=== PATIENT | female | born 1995 | race African-American/Black ===

== ENCOUNTER 2019-01-10 00:31 | Emergency (ER) | payer MEDICAID ==
[~2019-01-10] VITALS: Ht 167.6 cm; Wt 50.0 kg
[2019-01-10] MEDS ORDERED: SODIUM CHLORIDE 0.9% 1,000 ML IV ONE (04:40)
[2019-01-10] MEDS ORDERED: LORAZEPAM 2MG/ML CPJ IV ONE (04:45)
[2019-01-10 05:26] LABS: BASOPHILS % 0.6 % (0.0-2.0); EOSINOPHILS % 0.4 % (0.0-5.0); HEMATOCRIT. 45.3 % (36.0-48.0); HEMOGLOBIN. 14.8 g/dL (12.0-16.0); LYMPHOCYTES % 21.1 % (20.0-50.0); MEAN CORPUSCULAR HEMOGLOBIN 27.8 pg (28.0-32.0); MONOCYTES % 6.1 % (2.0-8.0); NEUTROPHILS % 71.8 % (40.0-76.0); PLATELET 174 x1000/uL (130-400); RED BLOOD CELL COUNT 5.33 mill/uL (4.2-5.4)
[2019-01-10 05:28] LABS: CHLORIDE 108 mEq/L (98-107)
[2019-01-10 05:44] LABS: ETHANOL BLOOD 326 mg/dL
[2019-01-10] MEDS ORDERED: POTASSIUM BICARB/CIT ACID 25 MEQ TABLET.EFF PO ONE (05:45)
[2019-01-10 06:07] LABS: *AMPHETAMINES SCREEN URINE NEGATIVE (NEGATIVE); *BARBITURATES SCREEN URINE NEGATIVE (NEGATIVE); *BENZODIAZEPINES SCREEN URINE NEGATIVE (NEGATIVE); *COCAINE SCREEN URINE NEGATIVE (NEGATIVE)
[2019-01-10 06:08] LABS: METHADONE URINE SCREEN NEGATIVE (NEGATIVE); OPIATES URINE SCREEN NEGATIVE (NEGATIVE); PHENCYCLIDINE URINE SCREEN NEGATIVE (NEGATIVE)
[2019-01-10 06:13] LABS: CANNABINOID URINE SCREEN PRESUMTIVE POSITIVE (NEGATIVE)
[2019-01-10 06:24] VITALS: BP 136/60
== END 2019-01-10 06:36 | disposition home or self-care (01) ==
LOC: ER 00:31
DX: F10.129 Alcohol abuse with intoxication, unspecified (principal); F12.10 Cannabis abuse, uncomplicated; Y90.8 Blood alcohol level of 240 mg/100 ml or more
CPT/HCPCS: 36415; 80053; 80305; 80320; 81025; 85025; 96374; 99283; J2060; J7030; Z7610; G0480